=== PATIENT | female | born 1940 | race Caucasian/White ===

== ENCOUNTER 2017-01-27 21:43 | Emergency (ER) | payer MEDICARE, BC ==
[2017-01-27] MEDS ORDERED: Sodium Chloride 0.9% 500 ML IV ONE (21:57)
--- NOTE | 2017-01-27 22:03 | EDM.PDOC ---
ED HPI GENERAL MEDICAL PROBLEM - General Chief Complaint: Neurological Problem Stated Complaint: ALTERED MENTAL STATUS Time Seen by Provider: 01/27/17 21:43 Source of Information: Reports: Patient, EMS, Family History Limitations: Reports: Altered Mental Status, Physical Impairment - History of Present Illness INITIAL COMMENTS - FREE TEXT/NARRATIVE: 76 years old w f was transferred from a Memory Unit to the ed due to " in and out of TIAs" BS was 135 at the memory unit. Pt is not able to give a HIP. Pt stated she has "pain all over" no specific complains, however. H/O CVA r frontal lobe. Onset: Unknown/Unsure Onset Date: 01/26/17 Onset Time: 09:00 Duration: Hour(s):, Intermittent Location: Reports: Generalized - Related Data Allergies Allergy/AdvReac Type Severity Reaction Status Date / Time No Known Allergies Allergy Verified 01/27/17 21:51 Home Meds: Home Meds Acetaminophen 2 tab PO Q4HR 01/27/17 [History] Aspirin 1 tab PO DAILY 01/27/17 [History] DULoxetine [Cymbalta] 1 cap PO DAILY 01/27/17 [History] Donepezil HCl 1 tab PO DAILY 01/27/17 [History] Emollient [Vanicream] 1 applic TOP ASDIRECTED 01/27/17 [History] Gabapentin [Neurontin] 1 tab PO TID 01/27/17 [History] Hydrocortisone [Anusol-HC] 1 applic RECTAL ASDIRECTED 01/27/17 [History] Hydrocortisone [Hydrocortisone 1% Oint] 1 applic RECTAL ASDIRECTED 01/27/17 [ History] Insulin Aspart Protam & Aspart [Novolog Mix 70-30 Flexpen Syrn] 12 unit SUBCUT DAILY 01/27/17 [History] Insulin Glargine,Hum.Rec.Anlog [Lantus Solostar] 12 unit SUBCUT DAILY 01/27/17 [ History] Lisinopril 1 tab PO DAILY 01/27/17 [History] Metoprolol Succinate 1 tab PO DAILY 01/27/17 [History] Miconazole Nitrate [Miconazole 7] 1 applic VAG ASDIRECTED 01/27/17 [History] Omeprazole 1 cap PO BID 01/27/17 [History] Polyethylene Glycol 3350 [MiraLAX] 1 tbsp PO DAILY 01/27/17 [History] QUEtiapine [SEROquel] 1 tab PO DAILY 01/27/17 [History] Sennosides [Senna] 1 tab PO ASDIRECTED 01/27/17 [History] Simvastatin [Zocor] 1 tab PO DAILY 01/27/17 [History] ED ROS GENERAL - Review of Systems Review Of Systems: Unable To Obtain ED EXAM, NEURO - Physical Exam Exam: See Below Exam Limited By: Altered Mental Status General Appearance: No Apparent Distress, Lethargic, Obese Eye Exam: Bilateral Eye: Normal Inspection Ears: Normal External Exam Nose: Normal Inspection Throat/Mouth: Other (dry mucosal membranes ) Head Exam: Atraumatic, Normocephalic Neck: Normal Inspection, Supple, Non-Tender, Full Range of Motion Respiratory/Chest: No Respiratory Distress, Lungs Clear, Normal Breath Sounds, No Accessory Muscle Use Cardiovascular: Normal Peripheral Pulses, Regular Rate, Rhythm GI/Abdominal: Normal Bowel Sounds, Soft, Non-Tender, No Organomegaly (Female) Exam: Deferred Rectal (Female) Exam: Deferred Neurological: Other (lethargic) Back Exam: Normal Inspection, Full Range of Motion Extremities: Normal Inspection, Normal Range of Motion, Non-Tender Psychiatric: Normal Affect Skin Exam: Warm, Dry, Intact, Normal Color, No Rash Course - Vital Signs Text/Narrative:: 76 years old w f was transferred from a Memory Unit to the ed due to " in and out of TIAs" BS was 135 at the memory unit. Pt is not able to give a HIP. Pt stated she has "pain all over" no specific complains, however. H/O CVA r frontal lobe. PE: lethargic, dehydrated. Labs: No Acute changes Imaging: CT Head: NAD Impression: Dehydration, H/O CVA, H/O dementia Tx: NS, pt was able to take fluids well. Reexam: Pt is more lucent, able to ambulate, alert, O X 3, takes fluid orally well. Plan: D/C back to the NH/instructions. Last Recorded V/S: Last Vital Signs Temp 36.7 C 01/27/17 21:52 Pulse 78 01/27/17 21:52 Resp 16 01/27/17 23:00 BP 143/53 H 01/27/17 23:00 Pulse Ox 98 01/27/17 23:00 - Orders/Labs/Meds Orders: Active Orders 24 hr Category Date Time Status Head wo Cont [CT] Stat Exams 01/27/17 21:56 Taken Labs: Laboratory Tests 01/27/17 01/27/17 01/27/17 Range/Units 22:05 22:05 22:05 WBC 6.6 (4.5-12.0) X10-3/uL RBC 4.24 (3.23-5.20) x10(6)uL Hgb 10.8 L (11.5-15.5) g/dL Hct 33.6 (30.0-51.3) % MCV 79.2 L (80-96) fL MCH 25.4 L (27.7-33.6) pg MCHC 32.0 L (32.2-35.4) g/dL RDW 16.0 H (11.5-15.5) % Plt Count 226 (125-369) X10(3)uL MPV 7.3 L (7.4-10.4) fL Neut % (Auto) 67.9 (46-82) % Lymph % (Auto) 21.5 (13-37) % [place] % (Auto) 6.2 (4-12) % Eos % (Auto) 4 (1.0-5.0) % Baso % (Auto) 1 (0-2) % Neut # (Auto) 4.5 (1.6-8.3) # Lymph # (Auto) 1.4 (0.6-5.0) # [place] # (Auto) 0.4 (0.0-1.3) # Eos # (Auto) 0.3 (0.0-0.8) # Baso # (Auto) 0.0 (0.0-0.2) # PT 10.4 (8.7-11.1) INR 1.03 (0.89-1.13) Sodium 140 (135-145) mmol/L Potassium 4.1 (3.5-5.3) mmol/L Chloride 106 (100-110) mmol/L Carbon Dioxide 27 (23-29) mmol/L BUN 20 (8-23) mg/dL Creatinine 0.9 (0.6-1.3) mg/dL Est Cr Clr Drug Dosing TNP Estimated GFR (MDRD) > 60 (>60) BUN/Creatinine Ratio 22.2 H (9-20) Glucose 144 H (80-116) mg/dL Calcium 8.7 (8.6-10.2) mg/dL Urine Color (YELLOW) Urine Appearance (CLEAR) Urine pH (5.0-6.5) Ur Specific [place] (1.010-1.025) Urine Protein (NEGATIVE) mg/dL Urine Glucose (UA) (NEGATIVE) mg/dL Urine Ketones (NEGATIVE) mg/dL Urine Occult Blood (NEGATIVE) Urine Nitrite (NEGATIVE) Urine Bilirubin (NEGATIVE) Urine Urobilinogen (NEGATIVE) mg/dL Ur Leukocyte Esterase (NEGATIVE) Urine RBC (0) Urine WBC (0) Ur Squamous Epith Cells (NS,R,O) Urine Bacteria (NS) 01/27/17 Range/Units 23:28 WBC (4.5-12.0) X10-3/uL RBC (3.23-5.20) x10(6)uL Hgb (11.5-15.5) g/dL Hct (30.0-51.3) % MCV (80-96) fL MCH (27.7-33.6) pg MCHC (32.2-35.4) g/dL RDW (11.5-15.5) % Plt Count (125-369) X10(3)uL MPV (7.4-10.4) fL Neut % (Auto) (46-82) % Lymph % (Auto) (13-37) % [place] % (Auto) (4-12) % Eos % (Auto) (1.0-5.0) % Baso % (Auto) (0-2) % Neut # (Auto) (1.6-8.3) # Lymph # (Auto) (0.6-5.0) # [place] # (Auto) (0.0-1.3) # Eos # (Auto) (0.0-0.8) # Baso # (Auto) (0.0-0.2) # PT (8.7-11.1) INR (0.89-1.13) Sodium (135-145) mmol/L Potassium (3.5-5.3) mmol/L Chloride (100-110) mmol/L Carbon Dioxide (23-29) mmol/L BUN (8-23) mg/dL Creatinine (0.6-1.3) mg/dL Est Cr Clr Drug Dosing Estimated GFR (MDRD) (>60) BUN/Creatinine Ratio (9-20) Glucose (80-116) mg/dL Calcium (8.6-10.2) mg/dL Urine Color Yellow (YELLOW) Urine Appearance Clear (CLEAR) Urine pH 5.0 (5.0-6.5) Ur Specific [place] 1.025 (1.010-1.025) Urine Protein Negative (NEGATIVE) mg/dL Urine Glucose (UA) Normal (NEGATIVE) mg/dL Urine Ketones Negative (NEGATIVE) mg/dL Urine Occult Blood Negative (NEGATIVE) Urine Nitrite Negative (NEGATIVE) Urine Bilirubin Negative (NEGATIVE) Urine Urobilinogen Normal (NEGATIVE) mg/dL Ur Leukocyte Esterase Negative (NEGATIVE) Urine RBC 0-5 (0) Urine WBC 0-5 (0) Ur Squamous Epith Cells Few H (NS,R,O) Urine Bacteria Few H (NS) Meds: Medications Discontinued Medications Generic Name Dose Route Start Last Admin Trade Name Rosalina PRN Reason Stop Dose Admin Sodium Chloride 500 mls @ 999 mls/hr 01/27/17 21:57 01/27/17 22:22 Normal Saline IV 01/27/17 22:27 999 mls/hr .BOLUS ONE Administration Departure - Departure Time of Disposition: 00:13 Disposition: Home, Self-Care 01 Condition: Good Clinical Impression: Dehydration - Discharge Information Referrals: Otoniel Eaton MD [Primary Care Provider] - Forms: ED Department Discharge Additional Instructions: Please increase water intake, please f/u, please come back if your symptoms get worse acutely - My Orders Last 24 Hours: My Active Orders 01/27/17 21:56 Head wo Cont [CT] Stat - Assessment/Plan Last 24 Hours: My Active Orders 01/27/17 21:56 Head wo Cont [CT] Stat
== END 2017-01-28 00:40 | disposition home or self-care (01) ==
LOC: FB.ED 21:43
DX: E86.0 Dehydration (principal); F03.90 Unspecified dementia, unspecified severity, without behavioral disturbance, psychotic disturbance, mood disturbance, and anxiety; Z86.73 Personal history of transient ischemic attack (TIA), and cerebral infarction without residual deficits; E66.9 Obesity, unspecified; Z79.82 Long term (current) use of aspirin; Z79.4 Long term (current) use of insulin; Z79.52 Long term (current) use of systemic steroids; Z79.899 Other long term (current) drug therapy
CPT/HCPCS: 36415; 70450; 80048; 81001; 85025; 85610; 96360; 99282; 99284; J7040